=== PATIENT | female | born 1935 | race Caucasian/White ===

== ENCOUNTER 2023-11-19 13:26 | Emergency (ER) | payer OTHER, SELFPAY ==
[2023-11-19] VITALS (7 sets, daily range): BP systolic 137–210; BP diastolic 52–84; BMI 24.3
[2023-11-19 14:23] LABS: ALT (SGPT) 23 U/L (0-35); AST (SGOT) 32 U/L (14-36); Albumin 4.3 g/dl (3.5-5.0); Alkaline Phosphatase 108 U/L (38-126); Blood Urea Nitrogen 15 mg/dl (7-17); Calcium 9.7 mg/dl (8.4-10.2); Carbon Dioxide 26 mmol/L (22-30); Chloride 101 mmol/L (98-107); Estimated Creatinine Clearance 31 ml/min; Glucose 101 mg/dl (70-99); Potassium 4.1 mmol/L (3.5-5.1); Sodium 139 mmol/L (135-145); Total Bilirubin 0.3 mg/dl (0.2-1.3); Total Protein 7.3 g/dl (6.3-8.2); eGFR > 60.00
[2023-11-19 14:30] LABS: % Basophils 0.7 % (0-2); % Eosinophils 2.5 % (0-6); % Immature Granulocytes 0.4 % (0-0.5); % Lymphocytes 15.7 % (20.5-51.1); % Monocytes 8.2 % (1.7-9.3); % Neutrophils 72.5 % (42.2-75.2); Absolute Basophils 0.1 10^3/uL (0-0.2); Absolute Eosinophils 0.2 10^3/uL (0-0.7); Absolute Lymphocytes 1.1 10^3/uL (1.2-3.4); Absolute Monocytes 0.6 10^3/uL (0.1-0.6); Absolute Neutrophils 4.8 10^3/uL (1.4-6.5); Hematocrit 33.9 % (37.0-47.0); Hemoglobin 11.8 g/dL (12.0-16.0); Mean Corp Hgb Conc. 34.8 g/dL (33.0-37.0); Mean Corpuscular Hgb 32.1 pg (27.0-31.0); Mean Corpuscular Volume 92.1 fL (81.0-99.0); Mean Platelet Volume 10.2 fL (7.4-10.4); Nucleated Red Blood Cells % 0 %; Platelet Count 317 10^3/uL (130-400); Red Blood Cell Count 3.68 10^6/uL (4.20-5.40); Red Cell Dist. Width 13.5 % (11.5-14.5); White Blood Cell Count 6.7 10^3/uL (4.8-10.8)
[2023-11-19 16:11] LABS: Troponin I < 0.012 ng/ml
[2023-11-19 16:23] LABS: Urine Albumin Negative (Neg - Trace); Urine Bilirubin Negative (Negative); Urine Character Slightly Cloudy (Clear); Urine Color Yellow; Urine Glucose Negative (Negative); Urine Ketone Negative (Negative); Urine Leukocyte Trace (Negative); Urine Nitrite Negative (Negative); Urine Occult Blood 1+ (Negative); Urine Specific Gravity 1.025 (<1.030); Urine Urobilinogen Negative (Neg - 1+)
[2023-11-19] MEDS: DUONEB 3 ML INH (16:25)
[2023-11-19] MEDS: LOPRESSOR 5 MG IV (16:25)
[2023-11-19 16:39] LABS: TSH Reflex To Free T4 4.83 uIU/ml (0.47-4.68)
[2023-11-19 17:08] LABS: Free T4 1.17 ng/dl (0.78-2.19)
[2023-11-19 17:16] LABS: Urine Squamous Cell >30 /LPF (Few)
[2023-11-19 17:17] LABS: Urine Bacteria Moderate (Negative)
--- NOTE | 2023-11-19 17:45 | ED.GENMED ---
History of Present Illness
General
Chief Complaint: Weakness
Source: patient and records
Exam Limitations: none
Time Seen by Provider: 11/19/23 15:13
Nursing documentation reviewed up to this point in time: agreed with
History of Present Illness
History of Present Illness:
Patient is an 88-year-old female presents to the emergency department complaining of increasing generalized weakness and her blood pressure going up. Patient is a poor historian secondary to her dementia. Patient denies headache, chest pain,
abdominal pain. Patient denies feeling short of breath or feeling palpitations. The patient's reliability when asked questions such as any recent fever, chills, weight loss, upper respiratory type symptoms is questionable. Patient is on a
beta-serge 50 mg twice a day. Patient has a history of UTIs.
Past History
Past History
ED Past Medical History: CAD, GERD, HTN, Psychiatric (Anxiety) and Other (Cervical DJD, headaches)
ED Past Surgical History: Appendectomy, Cardiac (Three-vessel CABG in 2007, history of cardiac stents), Gynecological (Total abdominal hysterectomy) and Other (Cataract surgery)
Social History
Tobacco: Non-smoker
Personal:
Living: with family
Employment: Retired
Family History
Family History: Other (Noncontributory)
Review of Systems
Review of Systems
Unable to obtain full review of systems at this time due to: dementia
All Other Systems: Not applicable
Constitutional: Reports fatigue; Denies fever
EENT: Reports no symptoms
Respiratory: Reports no symptoms
Cardiac: Reports no symptoms
ABD/GI: Reports no symptoms
: Reports no symptoms
Musculoskeletal: Reports no symptoms
Skin: Reports no symptoms
Neurological: Reports no symptoms
Hematologic/Lymphatic: Reports no symptoms
Phy Exam
Physical Exam
Physical Exam:
Physical Exam
General: No apparent distress, alert and appropriate, elderly and frail, well hydrated
HENT: Normocephalic, supple with no lymphadenopathy, no thyromegaly
Eyes: Clear sclera, conjuctiva without injection
Heart: Regular rhythm and rate. No S3, S4. No murmur. No NVD
Lungs: No respiratory distress, no stridor, lung sounds clear and equal bilaterally
Abdomen: Soft, nontender, no organomegaly, no CVA tenderness, BS good
Neuro: Alert and oriented to person, CN II - XII intact, no motor focality, no cerebellar dysfunction
Skin: no rash
Psychiatric: well kept. interactive and cooperative
Extremities: No edema, cyanosis, tenderness
Course
Orders/Labs/Results
Orders:
Orders
11/19/23 13:30
Electrocardiogram (*1) Urgent
Reason for Study: Hypertension, Benign
11/19/23 13:31
EKG- Treatment ONCE
11/19/23 13:33
Complete Blood Count/With Diff Urgent
Comprehensive Metabolic Panel Urgent
11/19/23 15:31
Free T4 Urgent
TSH Reflex To Free T4 Urgent
Troponin I Urgent
11/19/23 15:47
Urinalysis Reflex To Culture Urgent
Date Specimen was Collected: 11/19/23
Time Specimen was Collected: 15:46
Urine Microscopic Reflex Cult Urgent
Urine Culture Urgent
HÉCTOR Source: U
Specimen Description:
Date Specimen was Collected: 11/19/23
Time Specimen was Collected: 15:46
11/19/23 15:58
Ipratropium/Albuterol Sulfate [Duoneb] 3 ml INH R NOW STA
Metoprolol [Lopressor] 25 mg PO NOW STA
Metoprolol [Lopressor] 5 mg IV NOW STA
11/19/23 16:02
CR Chest - 2 Views Urgent
Comment:
Reason For Exam: weakness with wheezing
Abnormal Lab Results
11/19/23 11/19/23 11/19/23
13:33 15:31 15:47
RBC 3.68 L 10^6/uL
(4.20-5.40)
Hgb 11.8 L g/dL
(12.0-16.0)
Hct 33.9 L %
(37.0-47.0)
MCH 32.1 H pg
(27.0-31.0)
Absolute Lymphs (auto) 1.1 L 10^3/uL
(1.2-3.4)
Lymphocytes % 15.7 L %
(20.5-51.1)
Glucose 101 H mg/dl
(70-99)
TSH (Reflex) 4.83 H uIU/ml
(0.47-4.68)
Ur Occult Blood Reflex 1+ A
(Negative)
Leukocyte Esterase Rfl Trace A
(Negative)
Urine RBC 3-6 A /HPF
(0-2)
Urine WBC (Reflex) 11-15 A /HPF
(0-5)
Urine Bacteria (Reflex) Moderate A
(Negative)
11/19/23 13:33
11/19/23 13:33
Vital Signs
Initial and Last Documented VS:
Initial Vital Signs
BP
137/84
11/19/23 13:29
Last Documented Vital Signs
Temp Pulse Resp BP Pulse Ox
98.4 F 80 26 168/52 93
11/19/23 15:36 11/19/23 17:15 11/19/23 17:15 11/19/23 16:25 11/19/23 17:15
*Radiology
Radiology exam reviewed: radiology read reviewed (Mild congestion)
*Pulse Oximetry
Patient hypoxic: no
*EKG
Interpreted by ED Provider?: Yes
EKG Intrepretation Date: 11/19/23
EKG Intrepretation Time: 17:49
Interpretation: abnormal
Comparison EKG: no changes
Heart Rate: 82
Rate: normal
Rhythm: sinus
[place]: normal axis
Interval: normal interval
QRS Pattern: normal QRS
Ischemia: non-specific ST changes
*Cargo Checker Interpretation
Rate: normal
Interpretation: normal
Heart Rate: 82
Rhythm: sinus
*Critical Care Note
Total Time (30-74mins, 75-104mins- exclusive of procedures): Not Applicable
Update Note
Update Note:
Patient appears to have a mild UTI. Given the patient's blood pressure issues we will add a diuretic and increase the metoprolol. Patient takes 50 mg twice daily at this time. Will increase to 75 mg in the morning.
ED Attending Note
-
Portions of this chart may have been created with voice recognition software.� Occasional wrong word or��sound alike� substitutions may have occurred due to the inherent limitations of voice recognition software.
Discharge Plan
Departure
Patient Disposition: Retirement/SNF
Date of Disposition: 11/19/23
Time of Disposition: 17:50
Patient with high blood pressure during this ER visit?: Yes
Condition: Fair
Covid-19: Not Applicable
Discharge Problem:
Hypertension, UTI (urinary tract infection)
Instructions: Generalized Weakness (DC), BLOOD PRESSURE
Prescriptions:
New
furosemide [Lasix] 20 mg tablet
20 mg PO DAILY Qty: 30 0RF
nitrofurantoin monohyd/m-cryst [Macrobid] 100 mg capsule
100 mg PO BID 5 Days Qty: 10 0RF
No Action
clopidogrel 75 MG tablet
75 mg PO DAILY
metoprolol tartrate 50 MG tablet
50 mg PO BID
pravastatin 20 MG tablet
20 mg PO DAILY
cholecalciferol (vitamin D3) [Vitamin D3] 1,000 UNIT tablet
1,000 unit PO DAILY
famotidine 40 mg Tablet
40 mg PO BID
clonazepam 0.5 mg Tablet
0.5 mg PO BID
clonazepam 0.5 mg Tablet
0.5 mg PO DAILYPRN PRN (Reason: anxiety)
levothyroxine 25 mcg Tablet
25 mcg PO DAILY
Simply Saline Wound Wash 0.9 % Aerosol,[place]
1 applic TOPICAL MOTH
escitalopram oxalate 5 mg Tablet
5 mg PO DAILY
Referrals:
UNKNOWN - PT DOES,NOT KNOW [Family Provider] -
Activity Restrictions/Additional Instructions:
Continue present medications and therapy. Increase metoprolol to 75 mg in the morning and 50 mg at night.
Interventions
Interventions:
*Risk Screen - Suicide Last Done: 11/19/23 13:33
*General Assessment Last Done: 11/19/23 13:33
*Neglect/Abuse Screening Last Done: 11/19/23 13:33
ED- Fall Risk Assessment Last Done: 11/19/23 13:37
*ED COVID-19 Vaccine History Last Done: 11/19/23 13:33
ED- Cardiac Assessment Last Done: 11/19/23 13:37
ED- Neurological Assessment Last Done: 11/19/23 16:29
ED- Pulmonary Assessment Last Done: 11/19/23 13:37
Discharge Date and Time
Print Language: MICRONESIAN
[2023-11-20 01:10] VITALS: BP 181/57
== END 2023-11-20 01:13 ==
LOC: EMR 13:26
PROVIDERS: Emergency Medicine; EMERGENCY PHYSICIAN Emergency Medicine
DX: N39.0 Urinary tract infection, site not specified (principal); I10 Essential (primary) hypertension; R53.1 Weakness; R53.83 Other fatigue; F03.94 Unspecified dementia, unspecified severity, with anxiety; Z87.440 Personal history of urinary (tract) infections; M47.812 Spondylosis without myelopathy or radiculopathy, cervical region; I25.10 Atherosclerotic heart disease of native coronary artery without angina pectoris; K21.9 Gastro-esophageal reflux disease without esophagitis; Z95.1 Presence of aortocoronary bypass graft; Z95.5 Presence of coronary angioplasty implant and graft; Z88.8 Allergy status to other drugs, medicaments and biological substances; Z88.1 Allergy status to other antibiotic agents; Z88.3 Allergy status to other anti-infective agents; Z91.041 Radiographic dye allergy status
CPT/HCPCS: 99285; 96374; 94640; 71046; 80053; 81003; 81015; 84439; 84443; 84484; 85025; 87086; 93005

== ENCOUNTER 2023-12-06 16:18 | Emergency (ER) | payer OTHER, SELFPAY ==
[2023-12-06 16:20] VITALS: BP 142/60
[2023-12-06 16:21] VITALS: BP 142/60
--- NOTE | 2023-12-06 16:23 | ED.GENMED ---
History of Present Illness
General
Chief Complaint: Fall
Source: patient, ambulance crew and [facility] records
Exam Limitations: dementia
Time Seen by Provider: 12/06/23 16:22
Nursing documentation reviewed up to this point in time: agreed with
History of Present Illness
History of Present Illness:
88 yo female h/o dementia CABG/4 stents, on Plavix, from [facility] at [place] [facility], here for a fall. Reportedly fell in her room, ambulated out to staff and told them, small lump right side in back of her head. No LOC. Pt knows she's 'in the
hospital,' states she's here because 'I fell.' Cannot explain how she fell 'I don't know.' States 'my head' when asked if anything hurts. Denies neck, chest, back or extremities pain.
Past History
Past History
ED Past Medical History: CAD, GERD, HTN, Psychiatric (Anxiety) and Other (Cervical DJD, headaches)
ED Past Surgical History: Appendectomy, Cardiac (Three-vessel CABG in 2007, history of cardiac stents), Gynecological (Total abdominal hysterectomy) and Other (Cataract surgery)
Social History
Tobacco: Non-smoker
Personal:
Living: [facility]
Employment: Retired
Family History
Family History: Other (Noncontributory)
Review of Systems
Review of Systems
Allergies reviewed?: Yes
All Other Systems: ROS reviewed and negative except as documented in HPI and ROS
Constitutional: Denies fever
Respiratory: Denies trouble breathing
Cardiac: Denies chest pain or syncope
ABD/GI: Denies abdominal pain or nausea
: Reports incontinence
Musculoskeletal: Denies edema, neck pain or back pain
Skin: Reports no symptoms
Neurological: Reports headache ('my head' hurts); Denies dizzy or weakness
Phy Exam
Physical Exam
Physical Exam:
GENERAL: No acute distress. A&O x 1-2
CONSTITUTIONAL: Afebrile.
HEAD: dime sized lump right occiput
EYES: PERRL, conjunctivae normal
Neck: Supple
ENMT: moist mucus membranes, Pharynx nl
RESPIRATORY: Regular respirations, nonlabored, lungs clear.
CARDIOVASCULAR: Regular rate and rhythm, no murmurs, no rubs.
GI: Soft, nontender, normal BS
MUSCULOSKELETAL: No spinal bony tenderness. Moves all extremities well. Moves with ease. Well perfused.
SKIN: Warm, dry, pink
PSYCH: Normal mood and affect. Well kept, interactive and appropriate
NEUROLOGIC: Awake, alert and oriented x 1-2. Strength equal throughout. CN 2-12 intact. No focal neurological deficits. Ambulates well with walker and without walker slowly and steadily independently.
Course
Orders/Labs/Results
Orders:
Orders
12/06/23 16:22
CT Head W/o Iv Contrast Urgent
Comment:
Reason For Exam: unwitnessed fall, plavix, demented, bump back head
Vital Signs
Initial and Last Documented VS:
Initial Vital Signs
Temp Pulse Resp BP Pulse Ox
97.6 F 61 16 142/60 96
12/06/23 16:20 12/06/23 16:20 12/06/23 16:20 12/06/23 16:20 12/06/23 16:20
Last Documented Vital Signs
Temp Pulse Resp BP Pulse Ox
97.6 F 61 16 146/58 83
12/06/23 16:20 12/06/23 16:20 12/06/23 16:20 12/07/23 00:15 12/06/23 16:37
MDM/Problems Addressed
Differential Diagnosis Includes:
scalp contusion, ICH,
MDM/Problems Addressed:
88 yo female h/o dementia CABG/4 stents, on Plavix, from [facility] at [place] [facility], here for a fall. Reportedly fell in her room, ambulated out to staff and told them, small lump right side in back of her head. No LOC. Pt knows she's 'in the
hospital,' states she's here because 'I fell.' Cannot explain how she fell 'I don't know.' States 'my head' when asked if anything hurts. Denies neck, chest, back or extremities pain.
Pt has no neuro deficits. OOB and ambulated well with walker. Without walker, slowly and minimal unsteadiness, much better with walker
She will benefit from walker in the future.
5:[address] show no acute abnormality
Pt remains alert, no neuro deficits.
Stable for discharge
*Critical Care Note
Total Time (30-74mins, 75-104mins- exclusive of procedures): Not Applicable
ED Attending Note
-
Portions of this chart may have been created with voice recognition software.� Occasional wrong word or��sound alike� substitutions may have occurred due to the inherent limitations of voice recognition software.
Discharge Plan
Departure
Patient Disposition: Fdc/SNF
Date of Disposition: 12/06/23
Time of Disposition: 17:45
Condition: Good
Discharge Problem:
Contusion of scalp, Fall
Instructions: Head Injury in Adults (DC), Contusion (DC), Preventing falls in adults
Prescriptions:
No Action
clopidogrel 75 MG tablet
75 mg PO DAILY
metoprolol tartrate 50 MG tablet
50 mg PO BID
pravastatin 20 MG tablet
20 mg PO DAILY
cholecalciferol (vitamin D3) [Vitamin D3] 1,000 UNIT tablet
1,000 unit PO DAILY
famotidine 40 mg Tablet
40 mg PO BID
clonazepam 0.5 mg Tablet
0.5 mg PO BID
clonazepam 0.5 mg Tablet
0.5 mg PO DAILYPRN PRN (Reason: anxiety)
levothyroxine 25 mcg Tablet
25 mcg PO DAILY
Simply Saline Wound Wash 0.9 % Aerosol,[place]
1 applic TOPICAL MOTH
escitalopram oxalate 5 mg Tablet
5 mg PO DAILY
furosemide [Lasix] 20 mg tablet
20 mg PO DAILY Qty: 30 0RF
nitrofurantoin monohyd/m-cryst [Macrobid] 100 mg capsule
100 mg PO BID 5 Days Qty: 10 0RF
Referrals:
Ishaan Joel MD [Family Provider] - As needed
Activity Restrictions/Additional Instructions:
Ms. Montiel's exam shows nothing worrisome
Head CT is neg
She would benefit with a walker.
Diagnosis: scalp contusion
Interventions
Interventions:
*Risk Screen - Suicide Last Done: 12/06/23 16:28
*General Assessment Last Done: 12/06/23 16:28
*Neglect/Abuse Screening Last Done: 12/06/23 16:28
ED- Fall Risk Assessment Last Done: 12/07/23 00:23
*ED COVID-19 Vaccine History Last Done: 12/06/23 16:28
*Nursing Disposition Last Done: 12/07/23 00:23
ED-Musculoskeletal Assessment Last Done: 12/06/23 16:28
ED- Neurological Assessment Last Done: 12/06/23 16:28
ED-Skin Assessment Last Done: 12/06/23 16:28
Discharge Date and Time
Discharge Date/Time: 12/07/23 00:25
Print Language: ROMANSH
[2023-12-06 16:47] VITALS: BMI 22.8
[2023-12-07 00:15] VITALS: BP 146/58
== END 2023-12-07 00:25 ==
LOC: EMR 16:18
PROVIDERS: EMERGENCY PHYSICIAN Student in an Organized Health Care Education/Training Program; FAMILY PHYSICIAN Family Medicine
DX: S00.03XA Contusion of scalp, initial encounter (principal); W19.XXXA Unspecified fall, initial encounter; R22.0 Localized swelling, mass and lump, head; F03.94 Unspecified dementia, unspecified severity, with anxiety; I10 Essential (primary) hypertension; I25.10 Atherosclerotic heart disease of native coronary artery without angina pectoris; K21.9 Gastro-esophageal reflux disease without esophagitis; Z79.02 Long term (current) use of antithrombotics/antiplatelets; Z90.49 Acquired absence of other specified parts of digestive tract; Z95.1 Presence of aortocoronary bypass graft; Z95.5 Presence of coronary angioplasty implant and graft
CPT/HCPCS: 99284; 70450

== ENCOUNTER 2024-02-20 16:19 | Emergency (ER) | payer OTHER, SELFPAY ==
[2024-02-20] VITALS (7 sets, daily range): BP systolic 132–203; BP diastolic 49–107
[2024-02-20 19:48] LABS: % Basophils 0.3 % (0-2); % Eosinophils 0.2 % (0-6); % Immature Granulocytes 0.2 % (0-0.5); % Lymphocytes 9.7 % (20.5-51.1); % Neutrophils 80.6 % (42.2-75.2); Absolute Monocytes 0.9 10^3/uL (0.1-0.6); Absolute Neutrophils 7.9 10^3/uL (1.4-6.5); Hematocrit 33.7 % (37.0-47.0); Hemoglobin 11.3 g/dL (12.0-16.0); Mean Corp Hgb Conc. 33.5 g/dL (33.0-37.0); Mean Corpuscular Hgb 31.7 pg (27.0-31.0); Mean Corpuscular Volume 94.4 fL (81.0-99.0); Mean Platelet Volume 10.1 fL (7.4-10.4); Nucleated Red Blood Cells % 0 %; Platelet Count 239 10^3/uL (130-400); Red Blood Cell Count 3.57 10^6/uL (4.20-5.40); White Blood Cell Count 9.8 10^3/uL (4.8-10.8)
[2024-02-20 19:59] LABS: Lactic Acid 1.3 mmol/L (0.7-2.0)
[2024-02-20 20:05] LABS: ALT (SGPT) 17 U/L (0-35); AST (SGOT) 32 U/L (14-36); Alkaline Phosphatase 101 U/L (38-126); Blood Urea Nitrogen 19 mg/dl (7-17); Calcium 8.9 mg/dl (8.4-10.2); Carbon Dioxide 24 mmol/L (22-30); Chloride 97 mmol/L (98-107); Glucose 134 mg/dl (70-99); Potassium 3.9 mmol/L (3.5-5.1); Sodium 134 mmol/L (135-145); Total Bilirubin 0.9 mg/dl (0.2-1.3); Total Protein 7.4 g/dl (6.3-8.2)
--- NOTE | 2024-02-20 20:10 | ED.GENMED ---
History of Present Illness
General
Chief Complaint: Fall
Source: other (Nursing, patient able to answer some questions)
Exam Limitations: dementia
Time Seen by Provider: 02/20/24 19:28
History of Present Illness
History of Present Illness:
This is a 88 year old female that comes in by ambulance for an unwitnessed fall. Told by nursing that patient has fallen three times. Patient is on Plavix. Patient has no complaints at this time. Attempted to call the [facility] and was
unable to speak with anyone.
Past History
Past History
ED Past Medical History: CAD, Cancer (Skin cancer), GERD, HTN, Psychiatric (Anxiety) and Other (Cervical DJD, headaches, Slight Dementia, )
ED Past Surgical History: Appendectomy, Cardiac (Three-vessel CABG in 2007, history of cardiac stents X 4), Gynecological (Total abdominal hysterectomy) and Other (Cataract surgery)
Social History
Tobacco: Non-smoker
Alcohol: None
Personal:
Living: [facility]
Employment: Retired
Family History
Family History: Other (Noncontributory)
Review of Systems
Review of Systems
Unable to obtain full review of systems at this time due to: dementia (Slight)
Constitutional: Reports no symptoms; Denies fever or chills
EENT: Reports no symptoms
Respiratory: Reports no symptoms
Cardiac: Reports no symptoms
ABD/GI: Reports no symptoms
: Reports no symptoms
Musculoskeletal: Reports other (Left hand tenderness with redness)
Skin: Reports no symptoms
Neurological: Reports no symptoms
Psychiatric: Reports no symptoms
Phy Exam
General Physical Exam
General Presentation: no apparent distress
General age: appears stated age
General Skin: warm and dry
General Habitus: elderly
General Mental: usual mental status
General Hydration: appears well hydrated
ENT Exam
ENT Exam: TM's normal, pharynx normal and neck supple
Eye Exam
Eye Exam: EOMI
Cardiovascular Exam
Cardiovascular Exam: regular rate/rhythm, no edema and normal peripheral pulses
Pulmonary Exam
Pulmonary Exam: lungs clear, no respiratory distress, no rales, chest non tender, no crackles, no rhonchi, no wheezing and no cough
Gastrointestinal Exam
Gastrointestinal Exam: normal bowel sounds, non tender, soft, no organomegaly, no pulsatile mass and non distended
Musculoskeletal Exam
Musculoskeletal Exam: full ROM and no edema
Skin Exam
Skin Exam: normal color, warm/dry, no petechia, redness (Left hand redness and tenderness to tough over the proximal thumb. Redness of the right lower leg with open wound about quarter size. ) and other (Old bruising noted on the chin and face)
Psychiatric Exam
Psychiatric Exam: normal mood/affect
Course
Orders/Labs/Results
Orders:
Orders
02/20/24 16:26
Electrocardiogram (*1) Urgent
Reason for Study: Fatigue / Weakness
EKG- Treatment ONCE
02/20/24 19:31
CT Cervical Spine W/o Iv Contr Urgent
Comment:
Reason For Exam: fall
CT Head W/o Iv Contrast Urgent
Comment:
Reason For Exam: Unwitnessed fall, On Plavix
02/20/24 19:34
Complete Blood Count/With Diff Urgent
Comprehensive Metabolic Panel Urgent
Lactate Level [Lactic Acid] Urgent
02/20/24 20:10
Hand, Left 3 View [CR Hand - Left Min 3 Views] Urgent
Comment:
Reason For Exam: PAIN AND SWELLING
02/20/24 20:27
CR Chest - 2 Views Urgent
Comment:
Reason For Exam: Low pulse ox.
02/21/24 00:08
Straight cath- Treatment ONCE
02/21/24 00:59
UA [Urinalysis] Urgent
Date Specimen was Collected: 02/21/24
Time Specimen was Collected: 00:58
Abnormal Lab Results
02/20/24 02/21/24
19:34 00:59
RBC 3.57 L 10^6/uL
(4.20-5.40)
Hgb 11.3 L g/dL
(12.0-16.0)
Hct 33.7 L %
(37.0-47.0)
MCH 31.7 H pg
(27.0-31.0)
Absolute Neuts (auto) 7.9 H 10^3/uL
(1.4-6.5)
Absolute Lymphs (auto) 1.0 L 10^3/uL
(1.2-3.4)
Absolute Monos (auto) 0.9 H 10^3/uL
(0.1-0.6)
Neutrophils % 80.6 H %
(42.2-75.2)
Lymphocytes % 9.7 L %
(20.5-51.1)
Sodium 134 L mmol/L
(135-145)
Chloride 97 L mmol/L
(98-107)
BUN 19 H mg/dl
(7-17)
Glucose 134 H mg/dl
(70-99)
Urine Ketones Trace A
(Negative)
02/20/24 19:34
02/20/24 19:34
H/H slightyl low. Sodium and Chloride slightly low. Slight Dehydration. Hyperglycemia. Lactic acid normal at 1.3, Urine negative for infection.
Vital Signs
Initial and Last Documented VS:
Initial Vital Signs
Temp Pulse Resp Pulse Ox
98.2 F 81 16 93
02/20/24 16:21 02/20/24 16:21 02/20/24 16:21 02/20/24 16:21
Last Documented Vital Signs
Temp Pulse Resp BP Pulse Ox
98.2 F 77 21 154/55 94
02/20/24 16:21 02/20/24 21:58 02/20/24 21:58 02/20/24 21:00 02/20/24 21:58
MDM/Problems Addressed
Differential Diagnosis Includes:
UTI, Cellulitis left hand and right lower leg, Dementia with falls
MDM/Problems Addressed:
This is a 88 year old female that is brought in by ambulance with c/o unwitnessed fall. Told that patient has had [address] head and neck. X-ray hand, chest labs and urine.
[facility]. Will place patient on Keflex for redness of the left hand. Patient to follow up with the family doctor. Return with any concerns.
Chronic conditions affecting care:
Dementia
Acute Exacerbation and/or Progression of Chronic Illness:
Dementia
*Radiology
Radiology exam reviewed: preliminary read by ED provider (Left hand negative for fractures. chest- Negative for acute disease. ), radiology read reviewed (CT- Night hawk- head- No acute intracranial hemorrhage, mass or mass-effect. White matter
small vessel ischemic disease. Diffuse atrophy with ventriculomegaly. Skull intact. Cervical spine- No acute fracture of malalignment. straightening of cervical spine curvature, may be positional or due to) and all reviewed NAD by ED Provider (CT
cont-muscle spasm. Degenerative changes of the spine. Bronchial wall thickening with mosaic attenuation of the upper lungs. Correlate for Superimposed infection versus air trapping. )
*Pulse Oximetry
Patient hypoxic: no
*EKG
Interpreted by ED Provider?: Yes
Heart Rate: 78
Rhythm: sinus
[place]: normal axis
Interval: normal interval
QRS Pattern: normal QRS
Ischemia: non-specific ST changes (I, V4, V5, V6)
*Dean Interpretation
Rate: normal
Heart Rate: 86
Rhythm: sinus
*Critical Care Note
Total Time (30-74mins, 75-104mins- exclusive of procedures): Not Applicable
ED Attending Note
-
Portions of this chart may have been created with voice recognition software.� Occasional wrong word or��sound alike� substitutions may have occurred due to the inherent limitations of voice recognition software.
Discharge Plan
Departure
Patient Disposition: Half-Way/SNF
Date of Disposition: 02/21/24
Time of Disposition: 01:37
Patient with high blood pressure during this ER visit?: Yes
Condition: Good
Covid-19: Not Applicable
Discharge Problem:
Accidental fall, Cellulitis of hand, left
Instructions: Preventing falls in adults, Cellulitis (skin infection) in adults - ED discharge instructions, BLOOD PRESSURE
Prescriptions:
New
cephalexin 500 mg capsule
500 mg PO TID 10 Days Qty: 30 0RF
No Action
clopidogrel 75 MG tablet
75 mg PO DAILY
metoprolol tartrate 50 MG tablet
50 mg PO BID
pravastatin 20 MG tablet
20 mg PO DAILY
cholecalciferol (vitamin D3) [Vitamin D3] 1,000 UNIT tablet
1,000 unit PO DAILY
famotidine 40 mg Tablet
40 mg PO BID
clonazepam 0.5 mg Tablet
0.5 mg PO BID
clonazepam 0.5 mg Tablet
0.5 mg PO DAILYPRN PRN (Reason: anxiety)
levothyroxine 25 mcg Tablet
25 mcg PO DAILY
Simply Saline Wound Wash 0.9 % Aerosol,[place]
1 applic TOPICAL MOTH
escitalopram oxalate 5 mg Tablet
5 mg PO DAILY
furosemide [Lasix] 20 mg tablet
20 mg PO DAILY Qty: 30 0RF
nitrofurantoin monohyd/m-cryst [Macrobid] 100 mg capsule
100 mg PO BID 5 Days Qty: 10 0RF
Referrals:
Sanjay Bond MD [Family Provider] - Follow up in 2-3 days
Activity Restrictions/Additional Instructions:
As discussed, patient CT of the head and cervical spine is negative for any acute process. Patient has a cellulitis of the left hand and has been started on antibiotics. A prescription has been sent back with patient. Please try and keep her hand
elevated to decrease the swelling. Hand X-ray was negative for any fractures. Chest x-ray is negative for any acute process and her Urine is negative for infection. Please have patient follow up with the family doctor for recheck. IF YOU HAVE ANY
OTHER CONCERNS PLEASE RETURN TO THE EMERGENCY ROOM.
Interventions
Interventions:
*Risk Screen - Suicide Last Done: 02/20/24 16:21
*General Assessment Last Done: 02/20/24 16:21
*Neglect/Abuse Screening Last Done: 02/20/24 16:21
ED- Fall Risk Assessment Last Done: 02/20/24 23:32
*ED COVID-19 Vaccine History Last Done: 02/20/24 16:21
ED-Musculoskeletal Assessment Last Done: 02/20/24 16:30
ED- Neurological Assessment Last Done: 02/20/24 16:30
ED-Skin Assessment Last Done: 02/20/24 16:30
Discharge Date and Time
Print Language: CROATIAN
[2024-02-20 20:15] LABS: Albumin 4.2 g/dl (3.5-5.0); eGFR > 60.00
[2024-02-21 01:00] VITALS: BP 160/58
[2024-02-21 01:07] LABS: Urine Albumin Trace (Neg - Trace); Urine Bilirubin Negative (Negative); Urine Character Clear (Clear); Urine Color Yellow; Urine Glucose Negative (Negative); Urine Ketone Trace (Negative); Urine Leukocyte Negative (Negative); Urine Nitrite Negative (Negative); Urine Occult Blood Negative (Negative); Urine Specific Gravity 1.015 (<1.030); Urine Urobilinogen Negative (Neg - 1+)
[2024-02-21 02:00] VITALS: BP 126/54
[2024-02-21] MEDS: KEFLEX 500 MG PO (02:06)
[2024-02-21 04:00] VITALS: BP 108/56
[2024-02-21 07:00] VITALS: BP 108/56
[2024-02-21 08:00] VITALS: BP 160/58
[2024-02-21 08:56] VITALS: BP 151/55
--- NOTE | 2024-02-21 09:49 | EDRN ---
In Report this RN was informed that Waldo VILLAVICENCIO attempted to call facility for information and RN attempted to call report 2-3 times to facility. No answer at facility for the RN or Waldo Abreu. This RN just attempted to call report and was
transferred to nurse's phone. No answer so this RN left message about calling to give report on a resident from their facility w/ ER number and this RN's name to call me back.
--- NOTE | 2024-02-21 10:09 | EDRN ---
Pt administered a box lunch w/ it being set up. Pt was found crawling out of stretcher from the end. Pt assisted back in stretcher. Pt said she was going to sink w/ spit in it. Pt was administered kleenex and vomit bag for her spit.
--- NOTE | 2024-02-21 10:31 | EDRN ---
Pt left at 10:30 via [facility] ambulance at this time.
--- NOTE | 2024-02-21 10:35 | EDRN ---
Attempting to call report at this time.
--- NOTE | 2024-02-21 10:36 | EDRN ---
RN remains unavailable for report. THis RN called main number, was transferred to RN phone, got answering machine, and left a message at this time.
--- NOTE | 2024-02-21 10:40 | EDRN ---
All diagnostic written reports sent, copy of meds administered in ED sent, discharge paperwork w/ all lab reports sent, prescription for keflex sent, and copy of EKG and EKG report sent w/ EMS in an envelope for facilty caregiver.
--- NOTE | 2024-02-21 10:47 | EDRN ---
Puja Cisse LPN called this RN for report and received patient report at this time.
== END 2024-02-21 10:30 ==
LOC: EMR 16:19
PROVIDERS: Clinical Nurse Specialist Family Health; EMERGENCY PHYSICIAN Emergency Medicine; FAMILY PHYSICIAN Family Medicine
DX: L03.114 Cellulitis of left upper limb (principal); S81.801A Unspecified open wound, right lower leg, initial encounter; S00.83XA Contusion of other part of head, initial encounter; W19.XXXA Unspecified fall, initial encounter; E86.0 Dehydration; I10 Essential (primary) hypertension; F03.94 Unspecified dementia, unspecified severity, with anxiety; I25.10 Atherosclerotic heart disease of native coronary artery without angina pectoris; M47.812 Spondylosis without myelopathy or radiculopathy, cervical region; K21.9 Gastro-esophageal reflux disease without esophagitis; Z79.02 Long term (current) use of antithrombotics/antiplatelets; R29.6 Repeated falls; Z95.5 Presence of coronary angioplasty implant and graft; Z95.1 Presence of aortocoronary bypass graft; Z85.828 Personal history of other malignant neoplasm of skin; Z88.2 Allergy status to sulfonamides; Z88.8 Allergy status to other drugs, medicaments and biological substances; Z88.1 Allergy status to other antibiotic agents; Z91.041 Radiographic dye allergy status
CPT/HCPCS: 99285; 51701; 70450; 71046; 72125; 73130; 80053; 81003; 83605; 85025; 93005

== ENCOUNTER 2024-05-28 06:20 | Emergency (ER) | payer OTHER, SELFPAY ==
[2024-05-28 06:25] VITALS: BP 175/68
[2024-05-28 06:35] VITALS: BMI 24.7
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
[2024-05-28] MEDS: ADACEL 0.5 ML IM (07:38)
[2024-05-28 09:05] LABS: Urine Albumin 1+ (Neg - Trace); Urine Bilirubin Negative (Negative); Urine Character Clear (Clear); Urine Color Yellow; Urine Glucose Negative (Negative); Urine Ketone Negative (Negative); Urine Leukocyte 2+ (Negative); Urine Nitrite Positive (Negative); Urine Occult Blood 2+ (Negative); Urine Urobilinogen Negative (Neg - 1+)
[2024-05-28] MEDS: OMNICEF 300 MG PO (09:29)
[2024-05-28 09:31] LABS: Urine Squamous Cell >30 /LPF (Few)
[2024-05-28 09:32] LABS: Urine Bacteria Many (Negative)
== END 2024-05-28 10:30 | disposition home or self-care (01) ==
LOC: EMR 06:20
PROVIDERS: Physician Assistant; EMERGENCY PHYSICIAN Emergency Medicine
DX: S61.411A Laceration without foreign body of right hand, initial encounter (principal); N39.0 Urinary tract infection, site not specified; W22.03XA Walked into furniture, initial encounter; Z23 Encounter for immunization; F03.94 Unspecified dementia, unspecified severity, with anxiety; I10 Essential (primary) hypertension; I25.10 Atherosclerotic heart disease of native coronary artery without angina pectoris; K21.9 Gastro-esophageal reflux disease without esophagitis; Z85.828 Personal history of other malignant neoplasm of skin; Z90.49 Acquired absence of other specified parts of digestive tract; Z90.710 Acquired absence of both cervix and uterus; Z95.1 Presence of aortocoronary bypass graft; Z95.5 Presence of coronary angioplasty implant and graft
CPT/HCPCS: 99283; 90471; 73130; 81003; 81015; 87086; 90715

== ENCOUNTER 2024-09-01 20:34 | Inpatient (IN) | payer OTHER, SELFPAY ==
[2024-09-01 17:06] VITALS: BMI 23.6
[2024-09-01 17:09] VITALS: BP 153/61
[2024-09-01 17:13] VITALS: BP 153/61
[2024-09-01 17:39] LABS: Hematocrit 40.1 % (37.0-47.0); Hemoglobin 13.3 g/dL (12.0-16.0); Mean Corp Hgb Conc. 33.2 g/dL (33.0-37.0); Mean Corpuscular Volume 94.4 fL (81.0-99.0); Nucleated Red Blood Cells % 0 %; Platelet Count 244 10^3/uL (130-400); Red Cell Dist. Width 13.5 % (11.5-14.5)
[2024-09-01 17:52] LABS: ALT (SGPT) 12 U/L (0-35); AST (SGOT) 26 U/L (14-36); Albumin 4.9 g/dl (3.5-5.0); Alkaline Phosphatase 85 U/L (38-126); Blood Urea Nitrogen 24 mg/dl (7-17); Calcium 9.7 mg/dl (8.4-10.2); Carbon Dioxide 29 mmol/L (22-30); Chloride 102 mmol/L (98-107); Estimated Creatinine Clearance 18 ml/min; Glucose 105 mg/dl (70-99); Potassium 4.1 mmol/L (3.5-5.1); Sodium 140 mmol/L (135-145); Total Protein 8.6 g/dl (6.3-8.2); eGFR 33.10
[2024-09-01 17:57] LABS: COVID-19 Antigen Negative (Negative)
[2024-09-01 18:00] VITALS: BP 147/52
[2024-09-01 18:11] LABS: Urine Character Clear (Clear)
--- NOTE | 2024-09-01 18:18 | ED.GENMED ---
History of Present Illness
General
Chief Complaint: Fall
Time Seen by Provider: 09/01/24 17:17
History of Present Illness
History of Present Illness:
89-year-old female with history of dementia, CAD, hypothyroidism, history of UTI presenting from nursing facility for 2 unwitnessed falls over the past week. Nursing facility notes that patient has not been eating very much, has been increasingly
agitated. She also has been having a cough and had x-ray that showed bibasilar airspace disease. No report of any fevers. Patient is limited historian given underlying dementia. No additional history obtained at this time. No report of any
blood thinners.
Past History
Past History
ED Past Medical History: CAD, Cancer (Skin cancer), GERD, HTN, Psychiatric (Anxiety) and Other (Cervical DJD, headaches, Slight Dementia, )
ED Past Surgical History: Appendectomy, Cardiac (Three-vessel CABG in 2008, history of cardiac stents X 4), Gynecological (Total abdominal hysterectomy) and Other (Cataract surgery)
Social History
Tobacco: Non-smoker
Alcohol: None
Personal:
Living: detention
Employment: Retired
Family History
Family History: Other (Noncontributory)
Phy Exam
Physical Exam
Physical Exam:
General: Well-appearing, no clinical signs of dehydration, nontoxic and in no acute distress
HEENT: protecting airway, extraocular movements intact, pupils equal and reactive
Neck: appears supple, no midline tenderness
CV: Normal heart rate, regular rhythm
Resp: No accessory muscle use, no increased work of breathing, lungs clear to auscultation bilaterally
Abd: Soft and non-distended, no tenderness to palpation
Extremities: No deformities, no swelling
Neuro: alert, disoriented
: deferred
Rectal: deferred
Psych: Normal affect
Skin: Vesicular and erythematous rash overlying the left buttock region extending into the external vagina
Course
Orders/Labs/Results
Orders:
Orders
09/01/24 17:19
CT Head W/o Iv Contrast Urgent
Comment:
Reason For Exam: unwitnessed fall
Straight cath- Treatment ONCE
CR Chest - 2 Views Urgent
Comment:
Reason For Exam: cough
09/01/24 17:30
COVID-19 Antigen Urgent
Source: Nasal Swab
Complete Blood Count/With Diff Urgent
Comprehensive Metabolic Panel Urgent
Influenza A+B Rapid Molecular Urgent
HÉCTOR Source: Nasal Swab
Specimen Description:
09/01/24 18:00
Urinalysis Reflex To Culture Urgent
Date Specimen was Collected: 09/01/24
Time Specimen was Collected: 17:58
Urine Microscopic Reflex Cult Urgent
Urine Culture Urgent
HÉCTOR Source: U
Specimen Description:
Date Specimen was Collected: 09/01/24
Time Specimen was Collected: 17:58
09/01/24 19:25
Cefepime HCl [Maxipime] 2,000 mg IV NOW STA
Valacyclovir HCl [Valtrex] 1,000 mg PO ONCE ONE
Abnormal Lab Results
09/01/24 09/01/24
17:30 18:00
MCH 31.3 H pg
(27.0-31.0)
Absolute Lymphs (auto) 1.0 L 10^3/uL
(1.2-3.4)
Lymphocytes % 20.3 L %
(20.5-51.1)
Monocytes % 9.6 H %
(1.7-9.3)
BUN 24 H mg/dl
(7-17)
Creatinine 1.5 H mg/dL
(0.6-1.0)
Glucose 105 H mg/dl
(70-99)
Total Protein 8.6 H g/dl
(6.3-8.2)
Ur Occult Blood Reflex 1+ A
(Negative)
Urine Nitrite (Reflex) Positive A
(Negative)
Leukocyte Esterase Rfl 1+ A
(Negative)
Urine Bacteria (Reflex) Moderate A
(Negative)
09/01/24 17:30
09/01/24 17:30
Vital Signs
Initial and Last Documented VS:
Initial Vital Signs
Temp Pulse Resp BP Pulse Ox
97.5 F 58 21 153/61 92
09/01/24 17:09 09/01/24 17:09 09/01/24 17:09 09/01/24 17:09 09/01/24 17:09
Last Documented Vital Signs
Temp Pulse Resp BP Pulse Ox
98.2 F 59 21 153/61 92
09/01/24 18:00 09/01/24 17:15 09/01/24 17:15 09/01/24 17:13 09/01/24 18:19
MDM/Problems Addressed
MDM/Problems Addressed:
89-year-old female with history of dementia presenting after unwitnessed fall and concern for failure to thrive. Vital signs on arrival significant for mild hypertension.
On exam, patient is resting comfortably, no acute distress. Patient is disoriented, however suspected to be chronic from known dementia. No physical signs of trauma. However admits that 2 unwitnessed falls in patient's age will obtain CT imaging.
No midline cervical neck tenderness. Patient does have an active cough with expiratory wheezing and crackles. Possible concern for pneumonia. Plan for chest x-ray imaging. No present fever, nontoxic. Also known history of UTIs, will obtain
urine specimen, which could be contributing to patient's falls and failure to thrive. On examination, patient also appears to have rash that is focused to the left buttock region extending into the external vagina. Rash does not cross midline with
vesicular component. Concern for zoster. Will start on Valtrex.
19:20 - Urine does show sign of infection. Suspect UTI. Will start patient on Keflex. Chest x-ray without significant sign of pneumonia. CT brain negative. Given patient's change in mental status, failure to thrive with underlying infection,
will admit for antibiotics, as well as Valtrex for zoster.
*Pulse Oximetry
SaO2: 92
Oxygen Mode of Delivery: Room air
Patient hypoxic: no
*Critical Care Note
Total Time (30-74mins, 75-104mins- exclusive of procedures): Not Applicable
ED Attending Note
-
Portions of this chart may have been created with voice recognition software.� Occasional wrong word or��sound alike� substitutions may have occurred due to the inherent limitations of voice recognition software.
Discharge Plan
Departure
Prescriptions:
No Action
clopidogrel 75 MG tablet
75 mg PO DAILY
metoprolol tartrate 50 MG tablet
50 mg PO QPM
pravastatin 20 MG tablet
20 mg PO DAILY
famotidine 40 mg Tablet
40 mg PO BID
clonazepam 0.5 mg Tablet
0.5 mg PO BID
clonazepam 0.5 mg Tablet
0.5 mg PO DAILYPRN PRN (Reason: anxiety)
levothyroxine 25 mcg Tablet
25 mcg PO DAILY
escitalopram oxalate 5 mg Tablet
5 mg PO DAILY
furosemide [Lasix] 20 mg tablet
20 mg PO DAILY Qty: 30 0RF
guaifenesin [Mucus Relief ER] 600 mg Tablet Extended Release 12hr
600 mg PO [id number] PRN (Reason: cough)
donepezil 5 mg Tablet
5 mg PO HS
Patient Comments:
09/01/2024, start date: 09/01/2024.
Aquaphor Ointment
1 applic TOPICAL DAILY
Patient Comments:
09/01/2024, detention paperwork does not specify location of application.
metoprolol tartrate 50 mg Tablet
25 mg PO DAILY
cholecalciferol (vitamin D3) 25 mcg (1,000 unit) Capsule
25 mcg PO DAILY
Referrals:
Sanjay Bond MD [Family Provider, Family Practice]
Interventions
Interventions:
*Risk Screen - Suicide Last Done: 09/01/24 17:09
*Neglect/Abuse Screening Last Done: 09/01/24 17:09
*ED- Fall Risk Assessment Last Done: 09/01/24 17:09
*ED COVID-19 Vaccine History Last Done: 09/01/24 17:09
ED-Musculoskeletal Assessment Last Done: 09/01/24 17:21
ED- Neurological Assessment Last Done: 09/01/24 17:21
ED-Skin Assessment Last Done: 09/01/24 17:53
Discharge Date and Time
Print Language: PALAUAN
[2024-09-01 18:19] LABS: Urine Red Blood Cell 0-2 /HPF (0-2); Urine White Cell 0-2 /HPF (0-5)
[2024-09-01] MEDS: VALTREX 1000 MG PO (19:51)
[2024-09-01] MEDS: MAXIPIME 2000 MG IV (19:51)
[2024-09-01 19:54] VITALS: BP 189/58
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
[2024-09-01 21:00] VITALS: BP 170/50
[2024-09-01] MEDS: NSS 1000 IV (22:25)
[2024-09-02] VITALS (8 sets, daily range): BP systolic 147–182; BP diastolic 58–82; BMI 20.4
[2024-09-02] MEDS: ARICEPT 5 MG PO ×2 (01:16→21:40)
[2024-09-02] MEDS: ROCEPHIN 1000 MG IV (05:56)
[2024-09-02] MEDS: SYNTHROID 25 MCG PO (05:56)
[2024-09-02] MEDS: STERILE WATER FOR INJECTION 10 ML IV (05:56)
--- NOTE | 2024-09-02 07:45 | PTCARENOTE ---
Pt arrived to unit from ED on stretcher at 0540. Patient pulled over from stretcher to bed, patient AAOx2-disoriented to time, bed alarm in place & connected. VSS, See Nursing Shift Assessment. Bed in lowest position and locked. Patient oriented to
unit; however, patient required frequent reinforcement. Call kent within reach, patient resting comfortably.
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
[2024-09-02 08:34] LABS: Hematocrit 35.3 % (37.0-47.0); Hemoglobin 11.7 g/dL (12.0-16.0); Mean Corp Hgb Conc. 33.1 g/dL (33.0-37.0); Mean Corpuscular Volume 94.9 fL (81.0-99.0); Nucleated Red Blood Cells % 0 %; Platelet Count 185 10^3/uL (130-400); Red Cell Dist. Width 13.4 % (11.5-14.5)
[2024-09-02] MEDS: KLONOPIN 0.5 MG PO ×2 (08:35→20:32)
[2024-09-02] MEDS: HYDROPHOR 1 APPLIC TOPICAL (08:36)
[2024-09-02] MEDS: HEPARIN 5000 UNITS SC ×2 (08:36→20:32)
[2024-09-02] MEDS: PEPCID 20 MG PO (08:37)
[2024-09-02] MEDS: LOPRESSOR 25 MG PO (08:37)
[2024-09-02] MEDS: PRAVACHOL 20 MG PO (08:37)
[2024-09-02] MEDS: PLAVIX 75 MG PO (08:37)
[2024-09-02] MEDS: LEXAPRO 5 MG PO (08:38)
[2024-09-02] MEDS: VITAMIN D3 (cholecalciferol) 25 MCG PO (08:38)
[2024-09-02] MEDS: VALTREX 1000 MG PO ×3 (08:38→21:39)
[2024-09-02] MEDS: NSS 1000 IV ×2 (08:39→16:32)
[2024-09-02 09:33] LABS: ALT (SGPT) < 10 U/L (0-35); AST (SGOT) 22 U/L (14-36); Albumin 3.8 g/dl (3.5-5.0); Alkaline Phosphatase 73 U/L (38-126); Blood Urea Nitrogen 18 mg/dl (7-17); Calcium 8.6 mg/dl (8.4-10.2); Carbon Dioxide 25 mmol/L (22-30); Chloride 106 mmol/L (98-107); Estimated Creatinine Clearance 29 ml/min; Glucose 94 mg/dl (70-99); Potassium 3.7 mmol/L (3.5-5.1); Sodium 140 mmol/L (135-145); Total Protein 6.9 g/dl (6.3-8.2); eGFR 48.03
--- NOTE | 2024-09-02 12:55 | CM ---
Reviewed the chart notes and spoke with the patient's daughter at the bedside. The patient resides alone in the [facility]. Patient has a rolling walker, which per daughter, patient fails to use. The patient has not had VN nor been to a
SNF. Call placed to the [facility] left CM contact information for return call. CM continues to be available to patient/family and is monitoring medical plan for needs at discharge.
Plan: Discharge back to the [facility] when medically stable.
[2024-09-02] MEDS: LOPRESSOR 50 MG PO (17:09)
--- NOTE | 2024-09-02 17:46 | PTCARENOTE ---
Patient OOB with max assist x1. Patient is unsteady. Patient drowsy most of the day, easily arousable with verbal stimuli.
[2024-09-03] MEDS: NSS 1000 IV (02:09)
[2024-09-03] MEDS: SYNTHROID PO ×2 (06:10→06:17)
[2024-09-03] MEDS: STERILE WATER FOR INJECTION 10 ML IV (06:10)
[2024-09-03] MEDS: ROCEPHIN 1000 MG IV (06:10)
[2024-09-03 07:34] LABS: Blood Urea Nitrogen 10 mg/dl (7-17); Calcium 8.3 mg/dl (8.4-10.2); Carbon Dioxide 19 mmol/L (22-30); Chloride 111 mmol/L (98-107); Estimated Creatinine Clearance 41 ml/min; Glucose 88 mg/dl (70-99); Potassium 4.1 mmol/L (3.5-5.1); Sodium 139 mmol/L (135-145); eGFR > 60.00
[2024-09-03] MEDS: KLONOPIN 0.5 MG PO ×2 (07:49→20:09)
[2024-09-03] MEDS: HEPARIN 5000 UNITS SC ×2 (07:55→20:09)
[2024-09-03] MEDS: VITAMIN D3 (cholecalciferol) 25 MCG PO (07:55)
[2024-09-03] MEDS: LOPRESSOR 25 MG PO (07:55)
[2024-09-03] MEDS: PRAVACHOL 20 MG PO (07:55)
[2024-09-03] MEDS: PLAVIX 75 MG PO (07:55)
[2024-09-03] MEDS: VALTREX 1000 MG PO ×3 (07:55→21:36)
[2024-09-03] MEDS: LEXAPRO 5 MG PO (07:55)
[2024-09-03] MEDS: HYDROPHOR 1 APPLIC TOPICAL (07:56)
[2024-09-03 08:11] VITALS: BP 172/78
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
[2024-09-03 10:50] LABS: Hematocrit 33.1 % (37.0-47.0); Hemoglobin 11.3 g/dL (12.0-16.0); Mean Corp Hgb Conc. 34.1 g/dL (33.0-37.0); Mean Corpuscular Volume 92.5 fL (81.0-99.0); Platelet Count 155 10^3/uL (130-400); Red Cell Dist. Width 13.1 % (11.5-14.5)
[2024-09-03 15:43] VITALS: BP 144/85
[2024-09-03] MEDS: LOPRESSOR 50 MG PO (17:35)
[2024-09-03] MEDS: ARICEPT 5 MG PO (21:36)
[2024-09-03 23:03] VITALS: BP 176/68
[2024-09-03 23:35] VITALS: BP 136/68
[2024-09-04] MEDS: ROCEPHIN 1000 MG IV (05:47)
[2024-09-04] MEDS: STERILE WATER FOR INJECTION 10 ML IV (05:48)
[2024-09-04] MEDS: SYNTHROID 25 MCG PO (05:48)
[2024-09-04 07:35] VITALS: BP 135/74
[2024-09-04] MEDS: PRAVACHOL 20 MG PO (07:54)
[2024-09-04] MEDS: PLAVIX 75 MG PO (07:54)
[2024-09-04] MEDS: VALTREX 1000 MG PO ×3 (07:54→22:41)
[2024-09-04] MEDS: KLONOPIN 0.5 MG PO ×2 (07:54→19:53)
[2024-09-04] MEDS: PEPCID 20 MG PO (07:54)
[2024-09-04] MEDS: LEXAPRO 5 MG PO (07:54)
[2024-09-04] MEDS: VITAMIN D3 (cholecalciferol) 25 MCG PO (07:55)
[2024-09-04] MEDS: HEPARIN 5000 UNITS SC ×2 (07:55→19:53)
[2024-09-04] MEDS: LOPRESSOR 25 MG PO (07:55)
[2024-09-04] MEDS: HYDROPHOR 1 APPLIC TOPICAL (07:56)
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
[2024-09-04 10:55] VITALS: BP 104/49; PULSE 67; O2SAT 95
[2024-09-04 15:59] VITALS: BP 152/83
--- NOTE | 2024-09-04 16:21 | PTCARENOTE ---
pt transferred form 2130 to 2133 due to being closer to nurses station due to pt being confused and making attempts to get out of chair. Bed alarm and chair alarm in place
[2024-09-04] MEDS: LOPRESSOR 50 MG PO (17:38)
[2024-09-04] MEDS: ARICEPT 5 MG PO (22:41)
[2024-09-04 23:16] VITALS: BP 127/86
[2024-09-05] VITALS (8 sets, daily range): BP systolic 132–195; BP diastolic 58–102
[2024-09-05] MEDS: SYNTHROID 25 MCG PO (06:07)
[2024-09-05] MEDS: STERILE WATER FOR INJECTION 10 ML IV (06:07)
[2024-09-05] MEDS: ROCEPHIN 1000 MG IV (06:07)
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
[2024-09-05] MEDS: HEPARIN 5000 UNITS SC ×2 (08:33→20:41)
[2024-09-05] MEDS: LEXAPRO 5 MG PO (08:33)
[2024-09-05] MEDS: PEPCID 20 MG PO (08:33)
[2024-09-05] MEDS: PRAVACHOL 20 MG PO (08:33)
[2024-09-05] MEDS: VITAMIN D3 (cholecalciferol) 25 MCG PO (08:33)
[2024-09-05] MEDS: HYDROPHOR 1 APPLIC TOPICAL (08:35)
[2024-09-05] MEDS: LOPRESSOR 25 MG PO (08:39)
[2024-09-05] MEDS: PLAVIX 75 MG PO (08:39)
[2024-09-05] MEDS: KLONOPIN 0.5 MG PO (08:39)
[2024-09-05] MEDS: VALTREX 1000 MG PO (08:40)
[2024-09-05 09:24] LABS: Hematocrit 32.4 % (37.0-47.0); Hemoglobin 11.0 g/dL (12.0-16.0); Mean Corp Hgb Conc. 34.0 g/dL (33.0-37.0); Mean Corpuscular Volume 93.4 fL (81.0-99.0); Platelet Count 144 10^3/uL (130-400); Red Cell Dist. Width 13.3 % (11.5-14.5)
[2024-09-05 10:04] LABS: Blood Urea Nitrogen 8 mg/dl (7-17); Calcium 8.5 mg/dl (8.4-10.2); Carbon Dioxide 26 mmol/L (22-30); Chloride 107 mmol/L (98-107); Estimated Creatinine Clearance 41 ml/min; Glucose 84 mg/dl (70-99); Magnesium 1.9 mg/dl (1.6-2.3); Potassium 3.2 mmol/L (3.5-5.1); Sodium 137 mmol/L (135-145); eGFR > 60.00
--- NOTE | 2024-09-05 11:12 | CM ---
Reviewed the chart notes and spoke with the patient's daughter Kylee via telephone. IMM reviewed. CM spoke with nurse Soham from the [facility]. Reviewed PT evaluation. Per Soham, patient appears to be a baseline. CM continues to be available to
patient/family and is monitoring medical plan for needs at discharge.
Plan: Discharge back to the [facility] when medically stable.
Call report to: [phone] - ask for nurse
Fax report to: [phone]
Medical and necessity forms on chart.
[2024-09-05 11:19] LABS: Nucleated Red Blood Cells % 0 %
[2024-09-05] MEDS: KCL 260 MEQ IV (13:50)
--- NOTE | 2024-09-05 16:10 | PTCARENOTE ---
BP this AM was 180/79, made aware. Rectal temperature of 96.3. Marlene hugger applied with goal temp of 98 F. No new orders at this time.
[2024-09-05] MEDS: LOPRESSOR PO (17:27)
[2024-09-05] MEDS: VALTREX PO (17:27)
[2024-09-05] MEDS: NSS 1000 IV (18:15)
[2024-09-05] MEDS: THIAMINE INJECTION 100 MG IV (18:20)
--- NOTE | 2024-09-05 19:52 | PTCARENOTE ---
Pt with BP of 170/66, temp 96.4 rectally after jazz hugger application hours prior, unable to tolerate PO meds at this time. made aware, tx order placed to IMU. Report called to SNEHAL Lagunas. Pt transferred by this RN with jazz hugger and portable
monitoring manager and defibrillator pads present. Portable monitoring manager showing NSR on monitor for duration of transfer. Skin check complete with second RN, no new orders at this time.
[2024-09-05] MEDS: ZOVIRAX INJECTION 55.4 MG IV (20:38)
[2024-09-05] MEDS: NORVASC 2.5 MG PO (20:39)
[2024-09-05] MEDS: KLONOPIN 0.25 MG PO (20:39)
[2024-09-05 21:33] LABS: Blood Urea Nitrogen 9 mg/dl (7-17); Calcium 8.6 mg/dl (8.4-10.2); Carbon Dioxide 23 mmol/L (22-30); Chloride 109 mmol/L (98-107); Estimated Creatinine Clearance 41 ml/min; Glucose 88 mg/dl (70-99); Magnesium 1.8 mg/dl (1.6-2.3); Potassium 3.7 mmol/L (3.5-5.1); Sodium 135 mmol/L (135-145); eGFR > 60.00
[2024-09-05] MEDS: LOPRESSOR 50 MG PO (21:43)
[2024-09-05] MEDS: ARICEPT 5 MG PO (21:43)
--- NOTE | 2024-09-05 22:00 | PTCARENOTE ---
Report received as a tsf. report received from previous RN. octavia kaplangger in use when arriving to the floor. goal temp 98.0F. BP 190/66. Pt arousable to verbal stimuli. oriented to self. Blood cultures and BMP sent. IVF NS running at 75 ml/hr. SNAP ATTACHER on
shift aware of elevated BP. Order received for one time dose of metoprolol. assessment as documented. call light in reach.
[2024-09-05] MEDS: ZOSYN 50 IV (22:25)
[2024-09-06] VITALS (15 sets, daily range): BP systolic 125–205; BP diastolic 47–98
--- NOTE | 2024-09-06 02:25 | PTCARENOTE ---
pt attempting to exit bed states she 'needs to go to work', Pt reoriented to time and place by this RN. pt able to lay back down in bed and returned to sleep.
[2024-09-06] MEDS: ZOSYN 50 IV ×2 (02:55→08:50)
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
[2024-09-06] MEDS: STERILE WATER FOR INJECTION IV (05:16)
[2024-09-06 06:00] LABS: Hematocrit 32.9 % (37.0-47.0); Hemoglobin 11.1 g/dL (12.0-16.0); Mean Corp Hgb Conc. 33.7 g/dL (33.0-37.0); Mean Corpuscular Volume 92.9 fL (81.0-99.0); Platelet Count 150 10^3/uL (130-400); Red Cell Dist. Width 13.2 % (11.5-14.5)
[2024-09-06] MEDS: SYNTHROID 25 MCG PO (06:03)
[2024-09-06 06:07] LABS: ALT (SGPT) 10 U/L (0-35); AST (SGOT) 25 U/L (14-36); Albumin 3.4 g/dl (3.5-5.0); Alkaline Phosphatase 69 U/L (38-126); Blood Urea Nitrogen 8 mg/dl (7-17); Calcium 8.9 mg/dl (8.4-10.2); Carbon Dioxide 23 mmol/L (22-30); Chloride 110 mmol/L (98-107); Estimated Creatinine Clearance 36 ml/min; Glucose 87 mg/dl (70-99); Potassium 3.9 mmol/L (3.5-5.1); Sodium 137 mmol/L (135-145); Total Protein 6.4 g/dl (6.3-8.2); eGFR > 60.00
[2024-09-06 06:37] LABS: Cortisol, Random 12.9 ug/dl
[2024-09-06] MEDS: THERAGRAN 1 TABLET PO (08:48)
[2024-09-06] MEDS: KLONOPIN 0.25 MG PO ×2 (08:48→20:49)
[2024-09-06] MEDS: PRAVACHOL 20 MG PO (08:48)
[2024-09-06] MEDS: LOPRESSOR 25 MG PO (08:48)
[2024-09-06] MEDS: PEPCID 20 MG PO (08:49)
[2024-09-06] MEDS: THIAMINE INJECTION 100 MG IV (08:49)
[2024-09-06] MEDS: PLAVIX 75 MG PO (08:49)
[2024-09-06] MEDS: LEXAPRO 5 MG PO (08:49)
[2024-09-06] MEDS: NORVASC 2.5 MG PO ×2 (08:49→20:49)
[2024-09-06] MEDS: HEPARIN 5000 UNITS SC ×2 (08:49→20:49)
[2024-09-06] MEDS: VITAMIN D3 (cholecalciferol) 25 MCG PO (08:49)
[2024-09-06 08:52] LABS: Nucleated Red Blood Cells % 0 %
[2024-09-06] MEDS: HYDROPHOR 1 APPLIC TOPICAL (08:52)
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
--- NOTE | 2024-09-06 09:11 | PTOTSP ---
Reviewed chart. Pt transferred to higher level of care in IMU and PT order was not continued upon transfer. Pt currently in restraints. Will need new order for PT when stable and able to participate in therapy activity.
--- NOTE | 2024-09-06 09:58 | CON.ID ---
Consultation
-
Date/Time Consultation Requested: September 05, 2024 1829
Date/Time Consultation Performed: September 06, 2024 1000
Requesting Provider: Dr. Larry Melgoza
Performing Provider: Dr. Karina Simpson
Reason for Consultation: UTI, recent zoster, currently unable to take p.o. meds
Chief Complaint / Past History
Chief Complaint
Change in mental status
History of Present Illness
History obtained from review medical records since patient has dementia and she is a very poor historian. She is an 89-year-old female with history of dementia, CAD, anxiety who presented from [facility] to the ED on September 01 due to right hand injury.
Patient reportedly had 2 unwitnessed falls and developed right hand skin tear. Patient also noted to have cough and more agitated. In ED, chest x-ray negative, urine analysis positive nitrite, 1+ leukocyte esterase, 0-2 white blood cells and
she was started on ceftriaxone. Patient also noted to have vesicular rash on left buttock extending to external vagina and she was started on Valacyclovir 1 g 3 times daily. Yesterday patient noted to be more lethargic and unable to take oral meds
or foods. She was also hypothermic. Ceftriaxone was changed to Zosyn. Oral Cassandra acyclovir replaced with IV acyclovir. Today patient's mental status has significantly improved. She is now eating her breakfast. She denies cough. No headache.
Denies buttock pain. Denies urine urgency or dysuria.
Past History
Additional Past Medical History:
Dementia
Hypertension
CAD status post CABG
Anxiety
Cervical DJD
Allergy History:
Iodinated Contrast Media (Iodinated Contrast Media - IV Dye) Allergy (Verified 02/21/24 01:40)
Rash
levofloxacin (From Levaquin) Allergy (Verified 02/21/24 01:40)
Rash
nitrofurantoin (From Macrobid) Allergy (Verified 02/21/24 01:38)
Unknown
sulfamethoxazole (From Bactrim) Allergy (Verified 02/21/24 01:38)
Unknown
trimethoprim (From Bactrim) Allergy (Verified 02/21/24 01:38)
Unknown
Medications Reviewed: Yes
Current Antibiotics:
ceftriaxone (09/01 - 09/04)
Zosyn d2
Valacyclovir (09/01 - 09/04)
IV acyclovir 270mg q12 (d2)
Social History
Tobacco: Non-Smoker
Alcohol: None
Drug: None
Living: [facility]
Family History
Family History: Not Pertinent
Review of Systems
Review of Systems
General: Negative Fever or Chills
HEENT: Negative Headache
Respiratory: Negative Dyspnea or Cough
Gasteroenterology: Negative Nausea, Vomiting or Diarrhea
Genital / Urological: Negative Dysuria or Flank Pain
All systems: All other systems were reviewed and were negative
Vital Signs
Temp Pulse Resp BP Pulse Ox
97.6 F 57 15 196/58 98
09/06/24 06:00 09/06/24 06:15 09/06/24 06:15 09/06/24 06:02 09/06/24 03:15
Physical Exam
Physical Exam
Constitutional: No Acute Distress and Comfortable
Head: Other (No frontal or max or sinus tenderness)
Eyes: No Conjunctival Hemorrhage and Sclera Anicteric
Cardiovascular: Regular Rate and S1/S2
Pulmonary: Clear
Gastrointestinal: Soft, Non Tender, Non Distended and Normal Bowel Sounds
Genito-Urinary: Negative CVA Tenderness
Wound: Other (Patient refused to turn over for me to examine her buttocks. Per nurse the left gluteal lesions have crusted.)
Neurological: Awake and Alert
Lab / Diagnostic Study Results
09/06/24 05:39
09/06/24 05:39
Abs Immat Gran (auto) 0.0 10^3/uL (0-0.05) 09/06/24 05:39
Absolute Neuts (auto) 1.2 10^3/uL (1.4-6.5) L 09/06/24 05:39
Absolute Lymphs (auto) 1.0 10^3/uL (1.2-3.4) L 09/06/24 05:39
Absolute Monos (auto) 0.3 10^3/uL (0.1-0.6) 09/06/24 05:39
Absolute Basos (auto) 0.0 10^3/uL (0-0.2) 09/06/24 05:39
Immature Gran % 0.4 % (0-0.5) 09/06/24 05:39
Neutrophils % 44.8 % (42.2-75.2) 09/06/24 05:39
Lymphocytes % 36.4 % (20.5-51.1) 09/06/24 05:39
Monocytes % 9.9 % (1.7-9.3) H 09/06/24 05:39
Eosinophils % 8.1 % (0-6) H 09/06/24 05:39
Basophils % 0.4 % (0-2) 09/06/24 05:39
Ur Squamous Epith Cells 3-5 /LPF (Few) 09/01/24 18:00
Microbiology Results
Micro:
09/05/24 21:02 Blood Culture - Pending
Blood/Venous
09/05/24 13:59 MRSA Screen - Pending
Nose
09/05/24 13:35 Blood Culture - Pending
Blood/Venous
09/01/24 18:00 Urine Culture - Final
Urine Klebsiella pneumoniae
09/01/24 17:30 Influenza Types A & B (NILO) - Final
Nasal Swab Negative for Influenza A & B, NAAT
Negative results must be combined with clinical observations
and patient history.
Nucleic Acid Amplification test (NAAT)performed on the
[employer] platform.
09/01/24 CXR: No acute cardiopulmonary process.
09/02/[address]: No acute intracranial abnormality noted.
09/05/24 CXR: Clear lungs.
09/05/24 AXR: Nonobstructive bowel gas patter
Assessment / Plan
# Left gluteal herpes zoster, present on admission
# CKD3
- Pt can now take po meds.
- DC IV acyclovir
- Resume Valacyclovir 1000mg po bid (RENALLY ADJUSTED) to complete 7 d through 09/08/24.
# Suspect acute Leukopenia due to Valacyclovir dose unadjusted for CKD3
# Suspect delirium due to Valacyclovir dose unadjusted for CKD3
- Delirium resolved when pt unable to take po valacyclovir
- Monitor wbc on appropirate valacyclovir dosing
# Uncomplicated Klebsiella UTI vs bacteruria
- Completed 5 days of abx.
- DC Zosyn.
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
Dementia
Hypertension
CAD status post CABG
Anxiety
Cervical DJD
Care Review
Plan reviewed with: Physician (Dr. Melgoza)
[2024-09-06] MEDS: ZOVIRAX INJECTION IV (10:33)
[2024-09-06] MEDS: NSS IV (11:52)
[2024-09-06] MEDS: VALTREX 1000 MG PO ×2 (14:43→20:50)
[2024-09-06 15:06] LABS: Urine Character Clear (Clear)
[2024-09-06 15:14] LABS: Urine Red Blood Cell 0-2 /HPF (0-2)
[2024-09-06] MEDS: LOPRESSOR 50 MG PO (18:36)
--- NOTE | 2024-09-06 19:49 | PTCARENOTE ---
day shift note. pt alert but confused. calm throughout most of day. oob to chair for several hours. needed to be cathed for urinary retention x 1. bladder ultrasound done. iv fluids discontinued per order,. pt pulled out iv, restrted by iv
team.downgraded to telemetry level of care.
[2024-09-06] MEDS: ARICEPT 5 MG PO (21:02)
[2024-09-07] VITALS: BP 167/53
[2024-09-07 02:00] VITALS: BP 165/62
[2024-09-07 04:03] VITALS: BP 178/78
[2024-09-07] MEDS: SYNTHROID 37.5 MCG PO (05:18)
[2024-09-07] MEDS: STERILE WATER FOR INJECTION IV (05:18)
[2024-09-07 05:54] VITALS: BMI 20.6
[2024-09-07 06:00] VITALS: BP 135/63
[2024-09-07 06:41] LABS: ALT (SGPT) 11 U/L (0-35); AST (SGOT) 29 U/L (14-36); Albumin 3.5 g/dl (3.5-5.0); Alkaline Phosphatase 63 U/L (38-126); Blood Urea Nitrogen 5 mg/dl (7-17); Calcium 8.6 mg/dl (8.4-10.2); Carbon Dioxide 20 mmol/L (22-30); Chloride 110 mmol/L (98-107); Estimated Creatinine Clearance 47 ml/min; Glucose 77 mg/dl (70-99); Magnesium 2.0 mg/dl (1.6-2.3); Potassium 3.6 mmol/L (3.5-5.1); Sodium 137 mmol/L (135-145); Total Protein 6.7 g/dl (6.3-8.2); eGFR > 60.00
--- NOTE | 2024-09-07 06:55 | PTCARENOTE ---
Pt remained in restraints with some attempts to get oob and pull at dressings. Pt made no attempts to hurt staff. Pt appearing to get rest over night respirations even unlabored. Pt continues to retain urine BS showing greater then 600 (see work
list). Davie placed this AM. Pt shingles rash on left bottom and appearing to spread to front left ani area. Pt having wheeze respiratory TT for neb, 1.5l nc placed, respiratory will check in on Pt. spo2 97% on 1.5. Morning labs collected after
multiple attempts cbc clotting phlebotomy TT.
[2024-09-07] MEDS: PRAVACHOL 20 MG PO (09:02)
[2024-09-07] MEDS: THERAGRAN 1 TABLET PO (09:03)
[2024-09-07] MEDS: PLAVIX 75 MG PO (09:03)
[2024-09-07] MEDS: VALTREX 1000 MG PO ×2 (09:03→19:17)
[2024-09-07] MEDS: VITAMIN D3 (cholecalciferol) 25 MCG PO (09:03)
[2024-09-07] MEDS: THIAMINE INJECTION 100 MG IV (09:03)
[2024-09-07] MEDS: LEXAPRO 5 MG PO (09:04)
[2024-09-07] MEDS: HEPARIN 5000 UNITS SC ×2 (09:04→19:17)
[2024-09-07] MEDS: PEPCID 20 MG PO (09:04)
[2024-09-07] MEDS: HYDROPHOR 1 APPLIC TOPICAL (09:05)
--- NOTE | 2024-09-07 09:11 | PN.CDI ---
CDI
- -
CDI:
Physician Documentation Request
Admit Date: 09/01/24 20:34
Dear Doctor Rhona,
09/06 Hospitalist PN: 'Possible urinary tract infection...Cough possibly acute bronchitis...Started on Rocephin for UTI --> then changed to Zosyn --> now antibiotics stopped since completed 5 days -- appreciate ID'
Please clarify the following:
____ - UTI was present on admission and is now resolved.
____ - UTI was present on admission and is still being monitored, evaluated or treated
____ - UTI was ruled out
____ - UTI is still a likely, suspected, probable diagnosis
____ - Other
Use of terms such as suspected, likely, concern for, or probable (associated with a specific diagnosis that is being evaluated, monitored, or treated as if it exists) are acceptable and can be coded in the inpatient setting, when documented at the
time of discharge.
Thank you,
Gabbi Suresh RN, BSN
CDI Specialist
Available via [place] text
Please use your independent medical judgment in providing your response.
--- NOTE | 2024-09-07 09:13 | PTOTSP ---
Reviewed chart. Pt transferred to higher level of care in IMU 09/05 and PT order was not continued upon transfer. Pt currently in restraints. Will need new order for PT when stable and able to participate in therapy activity.
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
[2024-09-07] MEDS: KLONOPIN PO (09:38)
[2024-09-07] MEDS: LOPRESSOR PO (09:38)
[2024-09-07 09:43] LABS: Hematocrit 32.5 % (37.0-47.0); Hemoglobin 11.3 g/dL (12.0-16.0); Mean Corp Hgb Conc. 34.8 g/dL (33.0-37.0); Mean Corpuscular Volume 90.3 fL (81.0-99.0); Platelet Count 168 10^3/uL (130-400); Red Cell Dist. Width 13.2 % (11.5-14.5)
--- NOTE | 2024-09-07 10:08 | W.PN.ID1 ---
Date of Service
Date of Service: September 07, 2024
Today's Communication
Tomorrow is last day of valacyclovir.
ID will sign off.
Assessment / Plan
# Left gluteal herpes zoster, present on admission
# CKD3
- Continue Valacyclovir 1000mg po bid (RENALLY ADJUSTED) to complete 7 d through 09/08/24.
# Suspect acute Leukopenia due to Valacyclovir dose unadjusted for CKD3
# Suspect delirium due to Valacyclovir dose unadjusted for CKD3
- Leukopenia improving on lower dose valacyclovir.
- Delirium resolved when pt unable to take po valacyclovir
# Uncomplicated Klebsiella UTI vs bacteruria
- Completed 5 days of abx.
ID will sign off.
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
Dementia
Hypertension
CAD status post CABG
Anxiety
Cervical DJD
Chief Complaint
-: UTI and Other (Zoster)
Subjective / Review of Systems
No events overnight.
Vital Signs / Physical Exam
Vital Signs
Vital Signs
Temp Pulse Resp BP Pulse Ox
98.6 F 71 19 135/63 93
09/07/24 03:42 09/07/24 06:00 09/07/24 06:00 09/07/24 06:00 09/06/24 22:08
Physical Exam
Constitutional: No Acute Distress and Comfortable
Cardiovascular: Regular Rate and S1/S2
Pulmonary: Clear
Gastrointestinal: Soft, Non Tender, Non Distended and Normal Bowel Sounds
Extremities: Negative Edema
Objective Data
Lab Data
Lab Results
09/07/24 09:13
09/07/24 06:15
Estimated Creat Clear 47 ml/min 09/07/24 06:15
Total Bilirubin 0.5 mg/dl (0.2-1.3) 09/07/24 06:15
AST 29 U/L (14-36) 09/07/24 06:15
ALT 11 U/L (0-35) 09/07/24 06:15
Alkaline Phosphatase 63 U/L (38-126) 09/07/24 06:15
Most recent labs reviewed.
Micro Results:
09/05/24 21:02 Blood Culture - Preliminary
Blood/Venous No Growth in 24 hours- Final report to follow
09/06/24 14:41 C. difficile GDH Antigen & Toxins - Final
Feces/Stool Negative for toxigenic C.difficile
09/06/24 14:50 Urine Culture - Pending
Urine
09/06/24 14:41 Salmonella/Shigella Culture - Pending
Feces/Stool Campylobacter Culture - Pending
Shiga Toxin Test - Pending
09/05/24 13:59 MRSA Screen - Final
Nose No Methicillin Resistant Staphylococcus aureus isolated.
09/05/24 13:35 Blood Culture - Preliminary
Blood/Venous No Growth in 24 hours- Final report to follow
09/01/24 18:00 Urine Culture - Final
Urine Klebsiella pneumoniae
09/01/24 17:30 Influenza Types A & B (NILO) - Final
Nasal Swab Negative for Influenza A & B, NAAT
Negative results must be combined with clinical observations
and patient history.
Nucleic Acid Amplification test (NAAT)performed on the
[employer] platform.
09/01/24 CXR: No acute cardiopulmonary process.
09/02/[address]: No acute intracranial abnormality noted.
09/05/24 CXR: Clear lungs.
09/05/24 AXR: Nonobstructive bowel gas patter
[2024-09-07] MEDS: NORVASC 2.5 MG PO ×2 (10:16→19:18)
[2024-09-07 10:58] LABS: Nucleated Red Blood Cells % 0 %
--- NOTE | 2024-09-07 11:17 | PTOTSP ---
Speech Therapy Evaluation
Pt seen for bedside swallow evaluation. Pt's daughter and RN denied any coughing during meals. At bedside, pt demonstrates swallow function that appears to be grossly within functional limits. Pt unable to self-feed. ST provided PO and tactile cues
to hold cup. Oral phase characterized by prolonged mastication likely due to very sparse dentition. Adequate oral clearance. No overt s/sx of aspiration with the exception of sequential sips of thins via straw. Cannot rule out silent aspiration at
bedside. ST may consider VSE pending pt cognitive status and diet tolerance. To consider, recent CXR (09/07) indicated patchy opacity in left mid to lower lung, likely representing pneumonia.
Recommendations:
1. Continue IDDSI Level 7 Regular Solids and IDDSI Level 0 Thins liquids
2. Meds as tolerated
3. Standard aspiration precautions
4. ST will follow up for diet tolerance and may consider VSE to rule out silent aspiration pending pt cognitive status
[2024-09-07 12:22] VITALS: BMI 20.6
--- NOTE | 2024-09-07 13:25 | PTCARENOTE ---
Addendum entered by Edita Adorno RN 09/07/24 17:24:
Pt ate all of lunch with assist by staff. Her restraints remain intact, as pt picks at anything she feel on her arms. IV has been replaced multiple times this admission. continue to protect IV access.
Original Note:
Assumed care of pt this am and she is drowsy, calm and bradycardic. Arouses to voice or touch, nods head and answers with brief responses.
[2024-09-07] MEDS: UNASYN IV ×2 (13:52→19:17)
--- NOTE | 2024-09-07 17:18 | CM ---
Patient from [facility] with Hx dementia with Dx Unwitnessed fall/right hand laceration, possible bronchitis, pneumonia. Room air. Contact Precautions - Herpes zoster left gluteal region. Receiving IV Abx, PO Valtrex.
PT 09/04 recommended memory care vs SNF. Per nurse; confused, forgetful, soft restraints, assist of 2. ST - dysphagia diet.
As per prior CM notes; patient appears to be at baseline, plan return to [facility].
Phone for report [phone], fax [phone].
Plan return to [facility] when medically ready.
[2024-09-07] MEDS: LOPRESSOR 25 MG PO (18:06)
[2024-09-07] MEDS: LOPRESSOR 50 MG PO (18:09)
--- NOTE | 2024-09-07 19:07 | PTCARENOTE ---
Pt bradycardic in am. Order received to hold am doses of Klonopin and metoprolol. Pt became more awake and interactive as day progressed, she is assisted with feedings and ate portions of lunch and dinner with no signs of aspiration. Room air pulse
ox 92% throughout the day.
[2024-09-07] MEDS: KLONOPIN 0.25 MG PO (19:18)
--- NOTE | 2024-09-07 19:34 | PTCARENOTE ---
pt transferred to [facility] Rm [id number].
[2024-09-07 20:05] VITALS: BP 183/72; BMI 23.3
[2024-09-07] MEDS: MUCINEX 600 MG PO (21:32)
[2024-09-07] MEDS: ARICEPT 5 MG PO (21:34)
[2024-09-07 23:21] VITALS: BP 166/63
[2024-09-08] MEDS: UNASYN IV ×3 (02:30→14:07)
[2024-09-08 03:00] VITALS: BP 156/69
[2024-09-08] MEDS: STERILE WATER FOR INJECTION IV (06:10)
[2024-09-08] MEDS: SYNTHROID 37.5 MCG PO (06:13)
[2024-09-08 06:54] LABS: Hematocrit 33.0 % (37.0-47.0); Hemoglobin 11.2 g/dL (12.0-16.0); Mean Corp Hgb Conc. 33.9 g/dL (33.0-37.0); Mean Corpuscular Volume 91.7 fL (81.0-99.0); Nucleated Red Blood Cells % 0 %; Platelet Count 188 10^3/uL (130-400); Red Cell Dist. Width 13.2 % (11.5-14.5)
[2024-09-08 07:00] VITALS: BP 149/69
[2024-09-08 07:12] LABS: ALT (SGPT) 12 U/L (0-35); AST (SGOT) 27 U/L (14-36); Albumin 3.4 g/dl (3.5-5.0); Alkaline Phosphatase 67 U/L (38-126); Blood Urea Nitrogen 4 mg/dl (7-17); Calcium 9.0 mg/dl (8.4-10.2); Carbon Dioxide 25 mmol/L (22-30); Chloride 107 mmol/L (98-107); Estimated Creatinine Clearance 39 ml/min; Glucose 83 mg/dl (70-99); Potassium 3.3 mmol/L (3.5-5.1); Sodium 138 mmol/L (135-145); Total Protein 6.4 g/dl (6.3-8.2); eGFR > 60.00
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
[2024-09-08] MEDS: VITAMIN D3 (cholecalciferol) 25 MCG PO (08:53)
[2024-09-08] MEDS: THERAGRAN 1 TABLET PO (08:53)
[2024-09-08] MEDS: MUCINEX 600 MG PO ×2 (08:53→20:51)
[2024-09-08] MEDS: PEPCID 20 MG PO (08:53)
[2024-09-08] MEDS: PLAVIX 75 MG PO (08:53)
[2024-09-08] MEDS: VALTREX 1000 MG PO ×2 (08:54→20:52)
[2024-09-08] MEDS: PRAVACHOL 20 MG PO (08:58)
[2024-09-08] MEDS: NORVASC 2.5 MG PO ×2 (08:58→20:52)
[2024-09-08] MEDS: LEXAPRO 5 MG PO (08:58)
[2024-09-08] MEDS: THIAMINE INJECTION 100 MG IV (08:59)
[2024-09-08] MEDS: HEPARIN 5000 UNITS SC ×2 (09:00→20:52)
[2024-09-08] MEDS: KLONOPIN 0.25 MG PO ×2 (09:00→20:52)
[2024-09-08] MEDS: HYDROPHOR 1 APPLIC TOPICAL (09:01)
--- NOTE | 2024-09-08 10:17 | W.PN.ID1 ---
Date of Service
Date of Service: September 08, 2024
Today's Communication
Transition Unasyn to Augmentin 875 mg po bid through 09/10/24.
Last day of valacyclovir.
Assessment / Plan
# PNA- likely aspiration from recent decreased mental status.
- Now off oxygen
- Transition Unasyn to Augmentin 875 mg po bid through 09/10/24.
# Left gluteal herpes zoster, present on admission
# CKD3
- Continue Valacyclovir 1000mg po bid (RENALLY ADJUSTED) to complete 7 d through today 09/08/24.
# Suspect acute Leukopenia due to Valacyclovir dose unadjusted for CKD3
# Suspect delirium due to Valacyclovir dose unadjusted for CKD3
- Leukopenia improving on lower dose valacyclovir.
- Delirium resolved when pt unable to take po valacyclovir
# Uncomplicated Klebsiella UTI vs bacteruria
- Completed 5 days of abx.
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
Dementia
Hypertension
CAD status post CABG
Anxiety
Cervical DJD
Chief Complaint
-: UTI and Other (Zoster)
Subjective / Review of Systems
Eating breakfast. Off oxygen.
Vital Signs / Physical Exam
Vital Signs
Vital Signs
Temp Pulse Resp BP Pulse Ox
97.5 F 71 18 149/69 93
09/08/24 07:00 09/08/24 07:00 09/08/24 07:00 09/08/24 07:00 09/08/24 07:45
Physical Exam
Constitutional: No Acute Distress and Comfortable
Eyes: No Conjunctival Hemorrhage and Sclera Anicteric
Cardiovascular: Regular Rate and S1/S2
Pulmonary: Non Labored and Other (poor respiratory effort)
Gastrointestinal: Soft, Non Tender, Non Distended and Normal Bowel Sounds
Genito-Urinary: Negative CVA Tenderness
Extremities: Negative Edema
Neurological: Awake and Alert
Objective Data
Lab Data
Lab Results
09/08/24 06:13
09/08/24 06:13
Estimated Creat Clear 39 ml/min 09/08/24 06:13
Total Bilirubin 0.5 mg/dl (0.2-1.3) 09/08/24 06:13
AST 27 U/L (14-36) 09/08/24 06:13
ALT 12 U/L (0-35) 09/08/24 06:13
Alkaline Phosphatase 67 U/L (38-126) 09/08/24 06:13
Most recent labs reviewed.
Micro Results:
09/06/24 14:41 Salmonella/Shigella Culture - Preliminary
Feces/Stool Culture in Progress
Campylobacter Culture - Preliminary
Culture in Progress
Shiga Toxin Test - Final
No E. coli Shiga Toxin 1 or 2 detected.
09/05/24 21:02 Blood Culture - Preliminary
Blood/Venous No Growth in 48 hours- Final report to follow
09/05/24 13:35 Blood Culture - Preliminary
Blood/Venous No Growth in 48 hours- Final report to follow
09/06/24 14:50 Urine Culture - Final
Urine NO GROWTH
09/06/24 14:41 C. difficile GDH Antigen & Toxins - Final
Feces/Stool Negative for toxigenic C.difficile
09/05/24 13:59 MRSA Screen - Final
Nose No Methicillin Resistant Staphylococcus aureus isolated.
09/01/24 18:00 Urine Culture - Final
Urine Klebsiella pneumoniae
09/01/24 17:30 Influenza Types A & B (NILO) - Final
Nasal Swab Negative for Influenza A & B, NAAT
Negative results must be combined with clinical observations
and patient history.
Nucleic Acid Amplification test (NAAT)performed on the
[employer] platform.
09/07/24 CXR: Patchy parenchymal opacity is present in the left mid to lower lung, most likely representing pneumonia.
09/01/24 CXR: No acute cardiopulmonary process.
09/02/[address]: No acute intracranial abnormality noted.
09/05/24 CXR: Clear lungs.
09/05/24 AXR: Nonobstructive bowel gas patter
Care Review
Plan reviewed with: Physician (Dr. Melgoza)
[2024-09-08] MEDS: KCL 40 MEQ PO (10:44)
[2024-09-08 11:00] VITALS: BP 153/53
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
[2024-09-08 15:00] VITALS: BP 160/68
[2024-09-08 15:43] VITALS: BP 171/85; PULSE 74; O2SAT 92
[2024-09-08] MEDS: LOPRESSOR 50 MG PO (17:11)
[2024-09-08] MEDS: AUGMENTIN 875 MG/125 MG 1 TABLET PO (20:52)
[2024-09-08] MEDS: ARICEPT 5 MG PO (22:18)
[2024-09-08 23:40] VITALS: BP 110/54
--- NOTE | 2024-09-09 04:20 | W.PN.UPDATE ---
Update Note
Progress Note Update
Patient failed void trail. Broderick order placed.
[2024-09-09] MEDS: STERILE WATER FOR INJECTION IV (05:25)
[2024-09-09] MEDS: SYNTHROID 37.5 MCG PO (05:25)
[2024-09-09 06:58] LABS: Hematocrit 33.6 % (37.0-47.0); Hemoglobin 11.6 g/dL (12.0-16.0); Mean Corp Hgb Conc. 34.5 g/dL (33.0-37.0); Mean Corpuscular Volume 91.6 fL (81.0-99.0); Nucleated Red Blood Cells % 0 %; Platelet Count 190 10^3/uL (130-400); Red Cell Dist. Width 13.3 % (11.5-14.5)
[2024-09-09 07:23] LABS: ALT (SGPT) 13 U/L (0-35); AST (SGOT) 29 U/L (14-36); Albumin 3.7 g/dl (3.5-5.0); Alkaline Phosphatase 72 U/L (38-126); Blood Urea Nitrogen 4 mg/dl (7-17); Calcium 9.1 mg/dl (8.4-10.2); Carbon Dioxide 25 mmol/L (22-30); Chloride 105 mmol/L (98-107); Estimated Creatinine Clearance 34 ml/min; Glucose 88 mg/dl (70-99); Magnesium 1.7 mg/dl (1.6-2.3); Potassium 3.5 mmol/L (3.5-5.1); Sodium 138 mmol/L (135-145); Total Protein 6.9 g/dl (6.3-8.2); eGFR > 60.00
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
[2024-09-09 07:45] VITALS: BP 158/73
[2024-09-09] MEDS: MUCINEX 600 MG PO (09:36)
[2024-09-09] MEDS: THERAGRAN 1 TABLET PO (09:36)
[2024-09-09] MEDS: PLAVIX 75 MG PO (09:36)
[2024-09-09] MEDS: PEPCID 20 MG PO (09:36)
[2024-09-09] MEDS: AUGMENTIN 875 MG/125 MG 1 TABLET PO (09:36)
[2024-09-09] MEDS: PRAVACHOL 20 MG PO (09:36)
[2024-09-09] MEDS: LEXAPRO 5 MG PO (09:37)
[2024-09-09] MEDS: LOPRESSOR 25 MG PO (09:37)
[2024-09-09] MEDS: HEPARIN 5000 UNITS SC (09:37)
[2024-09-09] MEDS: VITAMIN D3 (cholecalciferol) 25 MCG PO (09:37)
[2024-09-09] MEDS: KLONOPIN 0.25 MG PO (09:37)
[2024-09-09] MEDS: NORVASC 2.5 MG PO (09:37)
[2024-09-09] MEDS: THIAMINE INJECTION IV ×2 (09:38→09:40)
[2024-09-09] MEDS: HYDROPHOR 1 APPLIC TOPICAL (09:40)
[2024-09-09] MEDS: VITAMIN B1 100 MG PO (12:15)
--- NOTE | 2024-09-09 13:54 | CM ---
Pt is cleared for discharge back to [facility] today. Ambulance transport requested.
CM spoke with pt's daughter Kylee via telephone and she is agreeable to discharge; verbal consent provided.
Plan: Discharge to [facility] today via ambulance.
Report: [phone]
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
[2024-09-09 15:09] VITALS: BP 118/64
[2024-09-09] MEDS: KCL 40 MEQ PO (15:45)
--- NOTE | 2024-09-09 16:54 | PTOTSP ---
ST Follow-Up
Pt currently presents with clinical signs of mild oropharyngeal dysphagia characterized by inability to bite into hard solids, prolonged mastication and bolus formation, and difficulty initiating swallows for large pills requiring compensatory
strategies. No overt s/s of penetration or aspiration noted at bedside. Silent aspiration cannot be ruled out at bedside.
Recommendations:
- In light of pt's reduced alertness and performance during today's session, would recommend a change in diet to SOFT BITE SIZED SOLIDS and THIN LIQUIDS with MEDS CRUSHED IN PUREED SOLIDS as able.
- Aspiration precautions: HOB upright for all PO intake; 1-1 assist for all PO intake; pt must be fully awake and alert for PO intake; alternate solids/liquids; feed slowly; ensure oral clearance after intake.
- CHAIN SALES REPRESENTATIVE to f/u re: diet tolerance, to determine if pt is a candidate for any diet upgrades, and to determine if pt would benefit from an instrumental swallow study.
== END 2024-09-09 18:21 | disposition home or self-care (01) | DRG 689 ==
LOC: 3 WEST ACU 20:34
PROVIDERS: General Practice; ADMITTING PHYSICIAN Hospitalist; ATTENDING PHYSICIAN Hospitalist; CONSULT PHYSICIAN Internal Medicine Infectious Disease; EMERGENCY PHYSICIAN Student in an Organized Health Care Education/Training Program; FAMILY PHYSICIAN Family Medicine
DX: N39.0 Urinary tract infection, site not specified (principal); G92.8 Other toxic encephalopathy; J18.9 Pneumonia, unspecified organism; J96.01 Acute respiratory failure with hypoxia; N17.9 Acute kidney failure, unspecified; F03.94 Unspecified dementia, unspecified severity, with anxiety; B96.1 Klebsiella pneumoniae [K. pneumoniae] as the cause of diseases classified elsewhere; Z87.440 Personal history of urinary (tract) infections; W19.XXXA Unspecified fall, initial encounter; S61.411A Laceration without foreign body of right hand, initial encounter; E87.6 Hypokalemia; D72.819 Decreased white blood cell count, unspecified; R33.9 Retention of urine, unspecified; B02.9 Zoster without complications; I25.10 Atherosclerotic heart disease of native coronary artery without angina pectoris; Z95.1 Presence of aortocoronary bypass graft; I12.9 Hypertensive chronic kidney disease with stage 1 through stage 4 chronic kidney disease, or unspecified chronic kidney disease; N18.30 Chronic kidney disease, stage 3 unspecified; K21.9 Gastro-esophageal reflux disease without esophagitis; E03.9 Hypothyroidism, unspecified; Z79.890 Hormone replacement therapy; Z79.899 Other long term (current) drug therapy; Z88.2 Allergy status to sulfonamides; Z88.1 Allergy status to other antibiotic agents; Z91.041 Radiographic dye allergy status; M47.812 Spondylosis without myelopathy or radiculopathy, cervical region; Z79.02 Long term (current) use of antithrombotics/antiplatelets; Z90.710 Acquired absence of both cervix and uterus; Z95.5 Presence of coronary angioplasty implant and graft; Z11.52 Encounter for screening for COVID-19; R68.0 Hypothermia, not associated with low environmental temperature
CPT/HCPCS: 51701; 70450; 71045; 71046; 74019; 76770; 80048; 80053; 81003; 81015; 82533; 83735; 84439; 84443; 85025; 85027; 87040; 87045; 87046; 87070; 87077; 87086; 87186; 87324; 87427; 87449; 87502; 87811; 92526; 92610; 96361; 96374; 97116; 97163; 97530; 99285